=== PATIENT | female | born 1995 | race Two or more races ===

== ENCOUNTER 2016-10-20 09:35 | Inpatient (IN) | payer MEDICAID ==
[2016-11-02 10:03] VITALS: BMI 32.3
[2016-11-02] MEDS ORDERED: DINOPROSTONE 10 MG SUP VG ONE (10:54)
[2016-11-02] MEDS ORDERED: LACTATED RINGERS 1,000 ML ONE (11:11)
[2016-11-02] MEDS ORDERED: IV START KIT ONE (11:11)
--- NOTE | 2016-11-02 11:21 | PCMAN ---
OB Admission Note - History : 1 Term: 0 : 0 Abortions (S&E): 0 Livin EDC:: 10/20/16 Gestational Age (weeks): 41 Days (#/7): 6 Admit Cervical Dilation:: 0 Admit Cervical Effacement (%):: 0 Admit Station:: -3 Admit Presentaton:: cephalic Membrane Status: Intact Contractions: Yes Contraction Frequency:: 7-10 Heart Rate:: 150 Status:: cat 2 secondary to 1 variable EFW:: 3.5 kg Summary of Course:: Late to PNC, primip, FOB not supportive or in country, anemia, anxiety, did not go to classes, US c/w dates. - Labs Blood Type: O (+) positive Hct/Hgb:: Rubella Status: Immune GBS Status: Negative Abnormal Labs: None - Review of Systems No CORONEL, RUQ pain, new onset swelling or vis changes. Has had mild cough and cold. no fevers. Good Fm, no lof or vb. Some pelvic discomfort and pressure that started yesterday. Mild, not severe. Does not call these contractions. Is not very uncomfortable with uc's. - Physical Exam General: Afebrile, No Acute Distress Psych/Mental Status: Mood/Affect Appropriate, Judgment/Insight Intact, Other ( Asked to repeat some of the exam and education which she did well.) Lungs: Clear to Auscultation Bilaterally Cardiovascular: Regular Rate and Rhythm, No Murmur Abdomen: Normal Bowel Sounds, Other (Gravid, vertex by leopolds, non tender uterus.) Genitourinary: Normal Female Genitalia, No Edema Extremities: Full ROM, No Edema Skin: Warm, Dry, No Rash - Problems (1) Elective induction of labor planned Status: Acute Code: [id number]/Plan: IOL secondary to post dates. Explained at length rational for IOL given 41w6d today. Explained benefits and risks of IOL including and not limited to risks of meds, increased risk of c section, non favorable cervix, pp bleeding. Pt. and her sister showed good understanding and asked informed questions. Explained this could be a 2-3 day procedure, explained monitoring of the baby etc. Baby with cat 2 strip when she was examined secondary to one variable. Will delay cervical ripening agent until category 1 strip obtained and us confirms vertex presentation. (2) Post-dates Status: Acute Code: O48.0Assessment/Plan: Indication for IOL secondary to post dates. Explained thoroughly to patient and sister.
[2016-11-02 11:52] LABS: HEMATOCRIT 35.5 % (37.0-47.0); HEMOGLOBIN 11.9 gm/l (12.0-16.0); MEAN CELL VOLUME 88.1 fl (81.0-99.0); MEAN CORPUSCULAR HEMOGLOBIN 29.5 pg (27.0-31.0); MEAN CORPUSCULAR HGB CONC 33.5 g/dl (33.0-37.0); RED CELL DISTRIBUTION WIDTH 14.1 % (11.5-14.5)
--- NOTE | 2016-11-02 12:02 | PDOC36 ---
Provider Note Subject: Cat 1 strip. VSSAF. Few contractions and not felt. Cervidil placed, cervix still closed, thick and posterior.
[2016-11-02] MEDS ORDERED: MINERAL OIL 25 ML BOT ONE (16:28)
[2016-11-02] MEDS ORDERED: LIDOCAINE Viscous 2% 15 ML UDCUP ONE (16:28)
[2016-11-02] MEDS ORDERED: LIDOCAINE 1% (PRES FREE) 30 ML VIAL ONE (16:28)
[2016-11-02] MEDS ORDERED: OXYTOCIN 10 UNITS/ML VIAL ONE (16:28)
[2016-11-02] MEDS ORDERED: PUMP TUBING ONE (16:29)
[2016-11-02] MEDS ORDERED: OXYTOCIN IN LR 500 ML IV ONE (16:29)
--- NOTE | 2016-11-02 22:36 | PDOC36 ---
Provider Note Subject: Getting more uncomfortable at about 1999. Saw her then and ambulating with discomfort, resting. Now wants to get in Jacuzzi. JEANNE, Cat 1 FHT's. Uc's coupling at times. Will recheck when take out cervidil.
--- NOTE | 2016-11-03 | PDOC36 ---
Provider Note Subject: Cervidil removed, cervix /2. UC's painful. Ambulating, jacuzzi and now laying down. Cat 1 FHT with occ Cat 2 for decreased variability. Will observe over next few hours, if not able to sleep then may need pit if uc's decrease to less than Q5. Will use low dose pit up to 5 mu and only start if Cat 1. Also, may have epidural if needed. VSSAF. Questions answered and pt happy with progress. If uc's taper off completely, will let pt. have a few hours of sleep.
[2016-11-03] MEDS ORDERED: FENTANYL 100 MCG/2 ML VIAL IV PRN (00:32)
[2016-11-03] MEDS: LACTATED RINGERS 1,000 ML IV SCH ×13 (01:02→16:24)
[2016-11-03] MEDS ORDERED: FENTANYL/ROPIVACAINE EPIDURAL 250 ML EP ONE (02:43)
[2016-11-03] MEDS ORDERED: EPIDURAL PUMP SET ONE (02:43)
[2016-11-03] MEDS ORDERED: EPIDURAL PROCEDURE TRAY ONE (03:03)
[2016-11-03] MEDS: FENTANYL/ROPIVACAINE EPIDURAL 250 ML EP SCH (03:24)
[2016-11-03] MEDS ORDERED: ONDANSETRON 4 MG/2ML 2 ML VIAL IV PRN (04:14)
[2016-11-03] MEDS ORDERED: EPHEDRINE SULFATE 50 MG/ML 1ML VIAL IV PRN (04:14)
[2016-11-03] MEDS ORDERED: LACTATED RINGERS 500 ML IV PRN (04:14)
[2016-11-03] MEDS ORDERED: DIPHENHYDRAMINE HCL 50 MG/1 ML VIAL IV PRN (04:14)
[2016-11-03] MEDS ORDERED: SODIUM CHLORIDE 0.9% 500 ML IV PRN (04:14)
[2016-11-03] MEDS ORDERED: NALBUPHINE HCL 20 MG/ML AMP IV PRN (04:14)
[2016-11-03] MEDS ORDERED: METOCLOPRAMIDE HCL 5 MG/ML 2ML VIAL IV PRN (04:14)
[2016-11-03] MEDS ORDERED: NALOXONE HCL 0.4 MG/ML VIAL IV PRN (04:14)
[2016-11-03] MEDS: OXYTOCIN IN LR 500 ML IV PRN ×6 (04:47→17:10)
--- NOTE | 2016-11-03 10:23 | PDOC36 ---
Provider Note Subject: S: pt comforable s/p epidural. Mild CORONEL, eating jello. O: 116/80 71 SVE: /-2, AROM of forebag with light mec TOCO: q2-4m FHT: baseline 135bpm/min-mod sonali now that pit is off/no accels/no decels A/P 21 yo @ 42w, PD IOL 1. labor: progressing. Although pit was turned off for persistent Cat 2 strip with minimal variability. Pt now /-2. Will restart pit when Cat 1 strip. 2. FWB: Cat 2, pitocin off. 3. GBS neg 4. Pain: s/p epidural
[2016-11-03] MEDS ORDERED: ACETAMINOPHEN 500 MG TABLET ONE ×2 (14:13→19:38)
[2016-11-03] MEDS: ACETAMINOPHEN 500 MG TABLET PO ONE ×2 (14:19→19:41)
[2016-11-03] MEDS ORDERED: ROPIVACAINE 0.5% 30 ML VIAL ONE (16:54)
[2016-11-03] MEDS ORDERED: LANOLIN 50 APPLIC/7G TUBE TP PRN (21:26)
[2016-11-03] MEDS ORDERED: BENZOCAINE/MENTHOL 60 APPLIC/BOT TP PRN (21:26)
[2016-11-03] MEDS: IBUPROFEN 800 MG TABLET PO PRN (21:34)
--- NOTE | 2016-11-03 21:37 | PCMDEL ---
Delivery Note - Labor Pushed (hr/min):: 1h47m - Delivery Delivery (Date): 11/03/16 Delivery (Time): 20:17 Gender: Female Presentation: Cephalic Position: OA Umbilical Cord: 3 Vessel Delayed Cord Clamping:: Not Performed 1 Minute Total: 3 5 Minute Total: 4 Placenta:: intact, meconium stained EBL:: 800ml Perineum:: 2nd degree perineal lac repaired in standard fashion, L labial lac repaired with 3 running sutures for hemostasis Suture:: 3-0 Vicryl x 2 Anesthesia/Meds:: epidural Length ROM:: 13h32m Comments:: Pt progressed to complete, pushed for approximately 1h47m. Infant delivered in THAD position, anterior shoulder easily delivered with gentle downward traction and posterior shoulder followed. Meconium stained fluid noted. Infant had poor tone, placed on maternal abdomen. No spontaneous cry, cord was clamped and cut and handed to RN for resuscitation. A meconium-stained placenta was delivered, intact with 3VC. A second degree perineal lac was repaired. Active management of 3rd stage with pitocin, although due to uterine atony methergine 0.2mg IM was also given. A left labial lac was also repaired for hemostasis. Misoprostol 800mcg was given per rectum. Bladder was emptied with a red bennie catheter. Hemostasis confirmed, EBL 800ml.
[2016-11-03] MEDS ORDERED: HYDROCODONE/ACETAMINOPHEN 5/325MG TABLET ONE (23:07)
[2016-11-03] MEDS: HYDROCODONE/ACETAMINOPHEN 5/325MG TABLET PO PRN (23:09)
[2016-11-04] MEDS: DOCUSATE SODIUM 100 MG CAPSULE PO PRN ×2 (03:17→09:16)
[2016-11-04] MEDS: IBUPROFEN 800 MG TABLET PO PRN ×3 (06:01→23:46)
[2016-11-04 06:58] LABS: HEMATOCRIT 27.3 % (37.0-47.0); HEMOGLOBIN 9.3 gm/l (12.0-16.0)
[2016-11-04] MEDS: FENTANYL/ROPIVACAINE EPIDURAL 250 ML EP SCH (09:10)
[2016-11-04] MEDS: HYDROCODONE/ACETAMINOPHEN 5/325MG TABLET PO PRN ×3 (09:15→20:34)
[2016-11-04] MEDS: FERROUS SULFATE (65 Fe) 325 MG TABLET PO SCH (09:16)
--- NOTE | 2016-11-04 12:42 | PDOC44 ---
- Subjective Day: 1 Patient reports pain controlled, very tired today after long labor. Denies dizziness. Tolerating PO, no nausea. Afebrile. Reports Pain Tolerable, Reports , Reports Lochia Light, Reports Tolerating Regular Diet, Denies Nausea, Denies Vomiting - Objective Temp Pulse Resp BP Pulse Ox 97.7 F 82 16 108/79 11/04/16 09:00 11/04/16 09:00 11/04/16 09:00 11/04/16 09:00 Lab Results 11/04/16 06:20 Hgb 9.3 L D Hct 27.3 L Current Medications Generic Name Dose Route Start Last Admin Trade Name Freq PRN Reason Stop Dose Admin Acetaminophen/Hydrocodone Bitart 1 - 2 tab 11/04/16 01:40 11/04/16 09:15 [place] 5/325 PO 1 tab Q4H PRN Administration Pain (Moderate) Benzocaine/Menthol 1 applic 11/03/16 21:26 Dermoplast TP PRN PRN Patient Comfort Docusate Sodium 100 mg 11/03/16 21:26 11/04/16 09:16 Colace PO 100 mg DAILY PRN Administration Comfort Emollient Ointment 1 applic 11/03/16 21:26 Eez-U-Owpedt TP PRN PRN sore nipples Ferrous Sulfate 325 mg 11/04/16 09:00 11/04/16 09:16 Ferrous Sulfate PO 325 mg DAILY MARIANA Administration Ropivacaine/Fentanyl/NS 250 mls @ 0 mls/hr 11/03/16 03:40 11/04/16 09:10 Fentanyl 2 Mcg/Ml + Ropivacaine 0.125% Ep Bag EP Not Given EPI MARIANA Protocol Per Protocol Ibuprofen 800 mg 11/03/16 21:26 11/04/16 06:01 Motrin PO 800 mg Q8H PRN Administration Pain (Mild) Sodium Chloride 10 ml 11/03/16 21:26 11/03/16 21:35 Normal Saline 10ml Flush IV 10 ml PRN PRN Administration IV Flush - Physical Exam General: Afebrile, No Acute Distress Psych/Mental Status: Mood/Affect Appropriate, Bonding Well Neurological: Alert, Normal Speech Lungs: Clear to Auscultation Bilaterally, Normal Air Movement Cardiovascular: Regular Rate and Rhythm, Normal S1, Normal S2 Fundus: Firm, Midline Extremities: Full ROM, No Edema, No Tenderness Skin: Normal Color, Warm, Dry, Intact, No Rash - Problems:Assessment/Plan (1) Normal vaginal delivery Status: AcuteAssessment/Plan: Patient with temp in labor, resolved with Tylenol. Chorioamnionitis not diagnosed. Has been afebrile since delivery. Needs BF support Routine post- care. (2) Acute blood loss anemia Status: AcuteAssessment/Plan: Hgb 9.3 Will start iron supplement daily Disposition: Stable, Anticipate DC Home Tomorrow
[2016-11-05] MEDS: FERROUS SULFATE (65 Fe) 325 MG TABLET PO SCH ×2 (07:21→19:15)
[2016-11-05] MEDS: DOCUSATE SODIUM 100 MG CAPSULE PO PRN (07:21)
[2016-11-05] MEDS: IBUPROFEN 800 MG TABLET PO PRN ×2 (07:21→15:18)
[2016-11-05] MEDS: FENTANYL/ROPIVACAINE EPIDURAL 250 ML EP SCH (08:09)
--- NOTE | 2016-11-05 12:31 | PDOC39B ---
Hospital Course: ADMIT DATE: 11/02/16 DISCHARGE DATE: 11/05/16 ADMISSION DIAGNOSES: IUP at 41w6d PROCEDURES: IOL due to postdates HISTORY OF PRESENT ILLNESS: 21 year old G1 T0 L0 at 42 weeks 1 days presenting with postdates, for IOL HOSPITAL COURSE: The patient was admitted for postdates IOL. Was admitted and started w Cervidil once Cat I strip. Later after Cervidil removed, started on Pitocin, which was later stopped and had AROM. Progressed to complete and had . Complicated by PPH. PP course has been unremarkable. By day of discharge the patient is ambulating, eating, voiding, and passing flatus without difficulty. Pain is controlled and lochia is appropriate. She is not , but formula feeding. - Physical Exam Vital Signs: Temp Pulse Resp BP Pulse Ox 97.8 F 76 18 127/74 11/05/16 07:25 11/05/16 07:25 11/05/16 07:25 11/05/16 07:25 General: Afebrile, No Acute Distress Psych/Mental Status: Mood/Affect Appropriate, Judgment/Insight Intact, Bonding Well Neurological: Grossly Intact, Alert, Normal Speech HEENT: Atraumatic, Mucous membr. moist/pink Lungs: Clear to Auscultation Bilaterally Cardiovascular: Regular Rate and Rhythm Breast: Soft Fundus: Firm, Midline, Below Umbilicus Extremities: Full ROM, No Edema Skin: Normal Color, Warm, Dry, Intact, No Rash - Discharge Diagnosis (1) Acute blood loss anemia Status: AcuteAssessment/Plan: Hgb 9.3 Cont iron supplement daily (2) Normal vaginal delivery Status: AcuteAssessment/Plan: Patient with temp in labor, resolved with Tylenol. Chorioamnionitis not diagnosed. Has been afebrile since delivery. Needs BF support Routine post- care. DC home PP precautions given - Discharge Plan Condition: Good Disposition: Home Instruction Forms: Vaginal Discharge Instructions Prescriptions: Docusate Sodium [COLACE 100 MG CAPSULE (F)] 100 mg PO DAILY PRN #60 capsule PRN Reason: Comfort Benzocaine/Menthol [DERMOPLAST SPRAY ([facility])] 1 applic TP PRN PRN #1 bot PRN Reason: Patient Comfort Ibuprofen [IBUPROFEN 800 MG TABLET ([facility])] 800 mg PO Q8H PRN #60 tablet PRN Reason: Pain (Mild) FERROUS SULFATE (65 Fe) [IRON FERROUS SULFATE 325 MG TABLET ([facility])] 325 mg PO DAILY #60 tablet Lanolin [LANOLIN 7 G TUBE ([facility])] 1 applic TP PRN PRN #1 tube PRN Reason: Sore Nipples Follow-Up: Ariela De Luna MD [Primary Care Provider] - 11/07/16 (clinic to call to sched)
[2016-11-05] MEDS: HYDROCODONE/ACETAMINOPHEN 5/325MG TABLET PO PRN ×2 (15:18→21:43)
[2016-11-05] MEDS ORDERED: MAGNESIUM HYDROXIDE 30 ML UDCUP PO PRN (19:22)
[2016-11-05 20:31] VITALS: BP 108/68
--- NOTE | 2016-11-06 10:38 | SURGPATH ---
[facility] [address] [place] [id number] Patient Name: CIERRA HAWLEY MR#: [id number] : 1995 Gender: F Specimen #: [id number] Collected: 11/03/2016 Received: 11/05/2016 Reported: 11/06/2016 Submitting Phys: EILEEN CHING Copy To Phys: [facility] Clinical History / Pre-Operative Diagnosis: Maternal fever; meconium; odor Specimen Source / Surgical Procedure Performed: Placenta Interpretation: PLACENTA, UNSPECIFIED DELIVERY: - THREE-VESSEL UMBILICAL CORD WITH FUNISITIS - PLACENTAL MEMBRANES WITH CHORIOAMNIONITIS - THIRD TRIMESTER PLACENTAL DISC WITH FOCAL ACUTE VILLITIS Electronically Signed Out Shaun Glass M.D. Gross Description: The specimen is received in a formalin filled container labeled with the patient's name. A 33 x 1 cm, hyper coiled, three vessel umbilical cord inserts at one edge of an 18 x 15 x 3 cm, 540 g discoid placenta. The surface and membranes are glistening and smith green. The membranes insert normally. There is focal pale-hickey subchorionic fibrin. The maternal surface is red-brown spongy without missing cotyledons. Sectioning through the disc reveals no nodule or induration. Gross summary: [place] placenta with hagan green discoloration suggestive of meconium staining, marginal cord insertion and subchorionic fibrin. Summary of sections: A-umbilical cord and membranes B-edge section adjacent to umbilical cord insertion site including subchorionic fibrin C-full thickness section including subchorionic fibrin Thee Daniel, PAshley Microscopic Description: Opthalmic Tech sections of the placenta are examined. The umbilical cord shows 3 vessels with an area showing perivascular acute inflammation. The membranes show infiltration by acute inflammatory cells without meconium pigment deposition. The sections of the placental disc show immature chorionic villi with peripherally placed vascular spaces and well-developed syncytial knots with focal areas showing an acute inflammation involving the chorionic villi towards the surface. 1: [id number] O43.893
== END 2016-11-05 21:50 | disposition home or self-care (01) | DRG 774 ==
LOC: EDSTATUS 12:18 → FBC 11-02 09:00
PROVIDERS: ADMIT Family Medicine; ATTEND Family Medicine
PROC: 3E0P7GC Introduction of Other Therapeutic Substance into Female Reproductive, Via Natural or Artificial Opening (ICD-10-PCS; 2016-11-02)
PROC: 10E0XZZ Delivery of Products of Conception, External Approach (ICD-10-PCS; principal; 2016-11-03)
PROC: 0KQM0ZZ Repair Perineum Muscle, Open Approach (ICD-10-PCS; 2016-11-03)
DX: O48.0 Post-term pregnancy (principal); O75.2 Pyrexia during labor, not elsewhere classified; O41.1230 Chorioamnionitis, third trimester, not applicable or unspecified; O99.02 Anemia complicating childbirth; D64.9 Anemia, unspecified; O99.344 Other mental disorders complicating childbirth; F41.9 Anxiety disorder, unspecified; O77.0 Labor and delivery complicated by meconium in amniotic fluid; O70.1 Second degree perineal laceration during delivery; Z3A.41 41 weeks gestation of pregnancy; Z37.0 Single live birth

== ENCOUNTER 2016-11-01 18:54 | Outpatient (CLI) | payer SELFPAY ==
[2016-11-01 19:40] VITALS: BMI 29.7
== END 2016-11-01 20:38 | disposition home or self-care (01) ==
LOC: FBCOUT 18:54 → FBC 18:54 → FBCOUT 20:38
PROVIDERS: ATTEND Family Medicine
DX: O48.0 Post-term pregnancy (principal); Z3A.00 Weeks of gestation of pregnancy not specified
CPT/HCPCS: 59025; 81002; G0463

== ENCOUNTER 2016-11-06 13:38 | Emergency (ER) | payer MEDICAID ==
[2016-11-06 15:37] LABS: ABSOLUTE NEUTROPHIL COUNT 9.6 K/mm3 (1.8-7.7); ALB/GLOB RATIO 0.8 (>1.0); ALBUMIN 2.6 gm/dL (3.5-5.7); BASO % 0.2 % (0.2-1.0); EOS # 0.1 (0.0-0.5); EOS % 0.6 % (0.9-2.9); HEMATOCRIT 26.7 % (37.0-47.0); HEMOGLOBIN 8.8 gm/l (12.0-16.0); IMM NEUT # 0.1 K/mm3 (0-0.2); IMM NEUT% 0.8 % (0-1); LYMPH # 0.9 (1.0-4.8); LYMPH % 8.4 % (15-45); MEAN CELL VOLUME 90.5 fl (81.0-99.0); MEAN CORPUSCULAR HEMOGLOBIN 29.8 pg (27.0-31.0); MEAN PLATELET VOLUME 10.2 fl (7.4-10.4); MONO # 0.5 (0.0-0.8); MONO % 4.1 % (4-12); NEUT % 85.9 % (43-75); PLATELET COUNT 245 K/mm3 (130-400); RED CELL DISTRIBUTION WIDTH 14.6 % (11.5-14.5)
[2016-11-06 15:53] LABS: SPECIFIC GRAVITY 1.015 (1.001-1.030); URINE BILIRUBIN NEGATIVE (NEGATIVE); URINE BLOOD 4+ (NEGATIVE); URINE GLUCOSE (UA) NEGATIVE (NEGATIVE); URINE LEUKOCYTE ESTERASE 1+ (NEGATIVE); URINE NITRITE NEGATIVE (NEGATIVE); URINE PROTEIN NEGATIVE (NEGATIVE); URINE UROBILINOGEN NORMAL (0-1 mg/dl)
[2016-11-06 16:09] LABS: URINE APPEARANCE SL CLOUDY; URINE COLOR YELLOW
[2016-11-06 16:13] LABS: URINE EPITHELIAL CELLS 0-2 /hpf
[2016-11-06 16:14] LABS: URINE BACTERIA 1+
[2016-11-06 16:19] LABS: BAND 5 % (0-10); BASOPHIL 0 % (0-1); EOSINOPHIL 0 % (1-3); LYMPHOCYTE 6 % (15-45); MONOCYTE 2 % (4-12); NEUTROPHILS 87 % (43-75); PLATELET ESTIMATE NORMAL (NORMAL); TOTAL CELLS COUNTED 100
[2016-11-06] MEDS ORDERED: CEFTRIAXONE 1 GRAM DUPLEX 50 ML IV ONE (16:50)
[2016-11-06] MEDS ORDERED: ONDANSETRON 4 MG/2ML 2 ML VIAL ONE (16:50)
== END 2016-11-06 17:50 | disposition home or self-care (01) ==
LOC: ED 13:38
DX: O86.20 Urinary tract infection following delivery, unspecified (principal); R11.2 Nausea with vomiting, unspecified; R19.7 Diarrhea, unspecified
CPT/HCPCS: 85025; 87086; 80053; 81001; 96375; 99284; 96365; 99283; J2405; J0696